=== PATIENT | male | born 1950 | race Caucasian/White ===

== ENCOUNTER → 2019-07-29 | Outpatient (CLI) | payer MEDICARE ==
--- NOTE | 2019-07-29 19:00 | ECHOF ---
Referral Reason:R01.1 Cardiac Murmur MEASUREMENTS -------- HEIGHT: 180.3 cm WEIGHT: 99.8 kg BP: 165/70 IVSd: 1.6 cm (0.6 - 1.1) LVIDd: 4.8 cm (3.9 - 5.3) LVPWd: 1.6 cm (0.6 - 1.1) IVSs: 2.2 cm LVIDs: 3.1 cm LVPWs: 2.3 cm LA Diam: 4.0 cm (2.7 - 3.8) RVIDd: 2.8 cm (< 3.3) LAESV Index (A-L): 25.34 ml/m Ao Diam: 3.3 cm (2.0 - 3.7) AV Cusp: 1.5 cm (1.5 - 2.6) EPSS: 0.6 cm MV E Fran: 0.65 m/s MV DecT: 300 ms MV A Fran: 0.88 m/s MV E/A Ratio: 0.73 RAP: 5.00 mmHg RVSP: 33.58 mmHg MV EF SLOPE: 86.59 mm/s (70 - 150) MV EXCURSION: 18.81 mm (> 18.000) TAPSE: 21.87 mm FINDINGS -------- Sinus rhythm. This was a technically adequate study. The left ventricular size is normal. There is moderate concentric left ventricular hypertrophy. O verall left ventricular systolic function is normal with, an EF between 60 - 65 %. The diastolic fi lling pattern indicates impaired relaxation 14.05. The right ventricle is normal in size. Normal LA size by volume 22+/-6 ml/m2. The right atrium is normal in size. Interatrial and interventricular septum intact. There is mild aortic valve sclerosis. There is trace to mild mitral regurgitation. Mild tricuspid regurgitation present. Right ventricular systolic pressure is normal at < 35 mmHg. Trace/mild (physiologic) pulmonic regurgitation. The aortic root size is normal. IVC Not well visulized. There is no pericardial effusion. CONCLUSIONS -------- 1. Sinus rhythm. 2. This was a technically adequate study. 3. The left ventricular size is normal. 4. There is moderate concentric left ventricular hypertrophy. 5. Overall left ventricular systolic function is normal with, an EF between 60 - 65 %. 6. The diastolic filling pattern indicates impaired relaxation 14.05.. 7. The right ventricle is normal in size. 8. Normal LA size by volume 22+/-6 ml/m2. 9. The right atrium is normal in size. 10. Interatrial and interventricular septum intact. 11. There is mild aortic valve sclerosis. 12. There is trace to mild mitral regurgitation. 13. Mild tricuspid regurgitation present. 14. Right ventricular systolic pressure is normal at < 35 mmHg. 15. Trace/mild (physiologic) pulmonic regurgitation. 16. The aortic root size is normal. 17. IVC Not well visulized. 18. There is no pericardial effusion. PRESENTATION MANAGER: Isabel Bucio RDCS
== END | disposition home or self-care (01) ==
LOC: RADECHMAIN 16:15
PROVIDERS: ATTEND Family Medicine
DX: I08.8 Other rheumatic multiple valve diseases (principal)
CPT/HCPCS: 93306

== ENCOUNTER → 2019-10-22 | Outpatient (CLI) | payer MEDICARE ==
--- NOTE | 2019-10-24 11:01 | CTL ---
EXAMINATION TYPE: CT Low Dose Lung DATE OF EXAM ORDERED: 10/22/2019 HISTORY: Personal history of tobacco abuse. Lung cancer screening CT DLP: [address] CTDI: 2.14 mGy Automated exposure control for dose reduction was used. SCREENING VISIT: Initial COMPARISON: None TECHNIQUE: Low dose computed tomography scan was performed through the chest at 1 mm thick sections a nd reconstructed images in the coronal plane at [address] DIAGNOSTIC QUALITY: Limited, but interpretable FINDINGS: LUNG NODULES: None. LUNGS: COPD: Severity: Mild Fibrosis: Severity: None Lymph nodes: Nonenlarged Other findings: Mild bibasilar peribronchial cuffing. RIGHT PLEURAL SPACE: Effusion: None Calcification: None Thickening: None Pneumothorax: None LEFT PLEURAL SPACE: Effusion: None Calcification: None Thickening: None Pneumothorax: None HEART: Heart Size: Normal Coronary calcification: Moderate to severe Pericardial effusion: None OTHER FINDINGS: Upper abdomen: Small hiatal hernia. Limited due to patient body habitus and technique. Bony thorax: Mild degenerative changes of the thoracic spine. Schmorl's node and a very mild superior endplate deformity of T7. Supraclavicular region: Unremarkable IMPRESSION: 1. Lung RADS 1-negative. 2. Very mild compression deformity of the T7 vertebral body. This is age indeterminate as no priors a re available for comparison. Correlate with point tenderness. 3. Moderate to severe three-vessel coronary artery calcifications, marker of coronary artery disease. 4. Small hiatal hernia. 5. Mild COPD with mild bibasilar peribronchial cuffing, likely reactive. FOLLOW UP CT CHEST RECOMMENDATION: Annual screening with low dose chest CT is recommended. CT LUNG RAD: 1
== END | disposition home or self-care (01) ==
LOC: RADCTMAIN 16:32
PROVIDERS: ATTEND Family Medicine
DX: Z12.2 Encounter for screening for malignant neoplasm of respiratory organs (principal); J44.9 Chronic obstructive pulmonary disease, unspecified; I25.10 Atherosclerotic heart disease of native coronary artery without angina pectoris; Z87.891 Personal history of nicotine dependence

== ENCOUNTER → 2021-03-26 | Outpatient (CLI) | payer MEDICARE ==
--- NOTE | 2021-03-26 07:36 | US ---
EXAMINATION TYPE: US duplex aorta DATE OF EXAM: 03/26/2021 COMPARISON: NONE CLINICAL HISTORY: Z13.820 Screening osteoporosis,Z87.891 Personal. Previous smoker. HTN controlled w ith meds EXAM MEASUREMENTS: Abdominal Aorta: Proximal: 2.1 x 2.0 cm Mid: 1.6 x 1.8 cm Distal: 1.5 x 1.6 cm Bifurcation: Right- 1.3 x 1.0 cm Left- 1.5 x 0.8 cm Suboptimal visualized due to overlying bowel gas and midline abdomen scar No AAA visualized at time of scan. IMPRESSION: No sonographic evidence for abdominal aortic aneurysm at this time.
--- NOTE | 2021-03-26 16:03 | BD ---
EXAMINATION TYPE: Axial Bone Density DATE OF EXAM: 03/26/2021 COMPARISON: NONE CLINICAL HISTORY: Height: 5 FT 10 IN Weight: 212 FRAX RISK QUESTIONS: Alcohol (3 or more units per day): NO Family History (Parent hip fracture): NO Glucocorticoids (More than 3mos): NO (Ex: prednisone, prednisolone, methylprednisolone, dexamethasone, and hydrocortisone). History of Fracture in Adulthood: YES Secondary Osteoporosis: 1. Type 1 Diabetes: NO 2. Hyperthyroidism: NO 3. Menopause before 45: NA 4. Malnutrition: NO 5. Chronic liver disease: NO Rheumatoid Arthritis: NO Current Tobacco Use: FORMER RISK FACTORS HISTORY OF: Surgery to Spine/Hip(right/left)/Wrist (right/left): LEFT WRIST When: 2003 Family History of Osteoporosis: NO Active: YES Diet low in dairy products/other sources of calcium: NO Postmenopausal woman: NA Take estrogen and/or progesterone medications: NA Lost more than 2 inches in height since high school: YES MEDICATIONS: Additional Medications: BLOOD PRESSURE MEDS, TENORMIN, ZOCOR, JARDIANCE, NORCO Additional History: EXAM MEASUREMENTS: Bone mineral densitometry was performed using the [employer] System. Bone mineral density as measured about the Lumbar spine is: ----- L1-L4(G/cm2): 1.132 T Score Values are as follows: ----- L2: -1.1 ----- L3: 0.2 ----- L4: -0.1 ----- L1-L4: -0.4 BASELINE Bone mineral density about the R hip (g/cm2): 0.823 Bone mineral density about the L hip (g/cm2): 0.834 T Score values are as follows: -----R Neck: -1.5 -----L Neck: -1.5 -----R Total: -1.1 -----L Total: -0.6 BASELINE IMPRESSION: Osteopenia. NOTE: T-SCORE=SD OF THE YOUNG ADULT MEAN.
== END | disposition home or self-care (01) ==
LOC: RADUSWWP 07:01
PROVIDERS: ATTEND Family Medicine
DX: M85.89 Other specified disorders of bone density and structure, multiple sites (principal); I10 Essential (primary) hypertension; Z87.891 Personal history of nicotine dependence
CPT/HCPCS: 77080; 93979

== ENCOUNTER → 2021-05-17 | Outpatient (CLI) | payer MEDICARE, OTHER ==
--- NOTE | 2021-05-17 12:47 | CONS ---
CONSULTATION DATE OF SERVICE: 05/17/2021 This 70-year-old gentleman has been evaluated in [facility] for possible obstructive sleep apnea-hypopnea syndrome. HISTORY OF PRESENT ILLNESS/SLEEP-WAKE EVALUATION: The patient's usual sleep schedule varies. It is from around 7 to 10 p.m. until 5:30 or 6 a.m. Usually no significant problems with falling asleep, although he has a TV set in the bedroom. He sleeps in different positions, including back and side. He does have loud snoring and witnessed episodes of stopped breathing during sleep. The patient wakes up from sleep up to 4 times with episodes of gasping for air and nocturia. Positive history of sleeptalking. In the morning the patient wakes up tired, falling asleep during the day, has problems with memory and concentration. [place] Sleepiness Scale is 9. He may take two naps during the day and usually feels refreshed after naps. Sometimes he sees vivid dreams during naps. No history of hypnagogic hallucinations, sleep paralysis or cataplexy. PAST MEDICAL HISTORY: Positive for hypertension, hyperlipidemia, knee arthritis, borderline level of blood sugar. PAST SURGICAL HISTORY: Right knee surgery, left ankle surgery. MEDICATIONS: 1. Tenormin 50 mg once a day. 2. Zestoretic 0.25 mg once a day. 3. Zocor 40 mg once a day. 4. Jardiance. 5. [place] 7.5/325 mg as needed. SOCIAL HISTORY: Positive for smoking 2-3 packs a day for up to 40 years; quit 10 years ago. Alcohol consumption: None at the present time. FAMILY HISTORY: Positive for cancer and hypertension. REVIEW OF SYSTEMS: No fevers. No double vision. No recent chest pain. No shortness of breath. No abdominal pain. No bleeding episodes. No blood in the urine. No seizure episodes. Multiple awakenings from sleep, sleepiness during the day without much energy. PHYSICAL EXAMINATION: GENERAL: A pleasant gentleman without distress. VITAL SIGNS: BP 128/74, HR 56, RR 15, height 5 feet 10 inches, weight 214.0, body mass index 30.7, temperature 97.4, oxygen saturation at room air 95%. HEENT: PERRLA, EOMI, evaluation of oropharynx showed tongue protrudes midline. Slightly low position of soft palate; Mallampati II to III. Wide pillars. Wide big uvula. NECK: Supple, no JVD. Thyroid is not palpable. Neck measures 17-1/2 inches in circumference. LUNGS: Clear to percussion and to auscultation. Good air exchange. No wheezing or rhonchi. HEART: S1, S2 regular. No murmurs, gallops, or rubs. ABDOMEN: Soft and nontender. Bowel sounds are present. No organomegaly appreciated. EXTREMITIES: No clubbing or cyanosis. COMMUNITY SUPPORT ASSOCIATE: Awake, alert, and oriented X3. Cranial nerves 2 to 7 intact. There is no fasciculation or atrophy. noted. No focal deficits observed. IMPRESSION: 1. Loud snoring, witnessed episodes of stopped breathing during sleep, multiple awakenings from sleep with gasping for air, small oropharyngeal air space, wide neck at 17-1/2 inches in circumference. Patient takes naps 2 times a day. [place] Sleepiness Scale 9. Obstructive sleep apnea-hypopnea syndrome. 2. Hypertension. 3. Hyperlipidemia. 4. Knee arthritis. 5. Borderline level of blood sugar. 6. Status post right knee surgery. 7. Patient on small doses of opioids for pain which may increase risk for central sleep apnea. PLAN: 1. Polysomnography for evaluation of patient's breathing during sleep. 2. CPAP/BiPAP titration if sleep study confirms obstructive sleep apnea-hypopnea syndrome. 3. Preferable position during sleep on the side. 4. No driving if patient feels any sleepiness. 5. I will see patient for follow up visit to explain results of testing and following plan. Thank you very much for referring this patient for consultation. Sincerely, Santino Watts MD, PhD, FAASM Diplomat of [place] [employer] Sleep Medicine Board of [place] [employer] [facility] [place] MMODL / IJN: [id number] /
== END ==
LOC: SLEEP 10:54
PROVIDERS: ATTEND Internal Medicine
DX: G47.33 Obstructive sleep apnea (adult) (pediatric) (principal); E78.5 Hyperlipidemia, unspecified; F17.210 Nicotine dependence, cigarettes, uncomplicated; M17.10 Unilateral primary osteoarthritis, unspecified knee; I10 Essential (primary) hypertension; Z79.899 Other long term (current) drug therapy; Z98.890 Other specified postprocedural states; Z79.891 Long term (current) use of opiate analgesic
CPT/HCPCS: 99211

== ENCOUNTER 2024-02-02 06:05 | Day surgery (SDC) | payer MEDICARE, OTHER ==
[~2024-02-02 06:05] MED LIST: ALPRAZolam 0.25 MG TAB PO PRN; ALPRAZolam 0.5 MG TAB PO PRN; ASPIRIN 325 MG TAB PO STA; ATORVASTATIN 80 MG TAB PO STA; HEPARIN SODIUM,PORCINE (1 ML) 2,500 UNIT in SODIUM CHLORIDE 0.9% 250 ML IRRIGATION PRN; HEPARIN SODIUM,PORCINE 10,000 UNIT in SODIUM CHLORIDE 0.9% 1,000 ML IRRIGATION PRN; NITROGLYCERIN SL TABS 0.4 MG TAB SUBLINGUAL PRN; SODIUM CHLORIDE 0.9% 1,000 ML in EMPTY BAG 1 BAG IV SCH
[2024-02-02] MEDS: SODIUM CHLORIDE 0.9% 1,000 ML IV ONE (06:20)
[2024-02-02 06:46] LABS: Glucose,Whole Blood 132 mg/dL (70-110)
[2024-02-02 07:14] VITALS: RESP 16; TEMP 98.7
[2024-02-02] MEDS ORDERED: fentaNYL (PF) 50 MCG/ML 2 ML AMP ONE (07:34)
[2024-02-02] MEDS: fentaNYL (PF) 50 MCG/ML 2 ML AMP IVP ONE (07:35)
[2024-02-02] MEDS: MIDAZOLAM 2 MG/2 ML VIAL IVP ONE (07:35)
[2024-02-02] MEDS ORDERED: VERAPAMIL 2.5 MG/ML 2 ML AMP ONE (07:36)
[2024-02-02] MEDS ORDERED: LIDOCAINE 1% INJ 10MG/ML (20 ML MDV) ONE (07:36)
[2024-02-02] MEDS ORDERED: HEPARIN SODIUM 1,000 UN/ML (10ML VL) ONE (07:36)
[2024-02-02] MEDS: LIDOCAINE 1% INJ 10MG/ML (20 ML MDV) SQ ONE (07:37)
[2024-02-02] MEDS: HEPARIN SODIUM 1,000 UN/ML (10ML VL) IVP ONE (07:42)
[2024-02-02] MEDS: VERAPAMIL SYRINGE (5 MG/10 ML) INTRAARTER ONE (07:42)
[2024-02-02] MEDS ORDERED: CLOPIDOGREL 75 MG TAB ONE (07:57)
[2024-02-02] MEDS: CLOPIDOGREL 75 MG TAB PO ONE (08:04)
[2024-02-02] MEDS: IOPAMIDOL-370 100ML BTL INJ ONE ×2 (08:20→09:00)
[2024-02-02] MEDS: NITROGLYCERIN 1000MCG/10ML SYRINGE INTRACORON ONE (08:20)
[2024-02-02] MEDS ORDERED: MAG HYDROX/AL HYDROX/SIMETH 30 ML CUP PO PRN (08:54)
[2024-02-02] MEDS ORDERED: ACETAMINOPHEN TAB 325 MG TAB PO PRN (08:54)
[2024-02-02] MEDS ORDERED: RX INFO: IV CONTRAST WAS GIVEN 1 EACH MISC MISCELLANE PRN (08:54)
[2024-02-02] MEDS ORDERED: ATROPINE SULFATE 0.1 MG/ML 10ML SYRINGE IV PRN (08:54)
[2024-02-02] MEDS ORDERED: ZOLPIDEM 5 MG TAB PO PRN (08:54)
[2024-02-02] MEDS ORDERED: SODIUM CHLORIDE 0.9% 1,000 ML in EMPTY BAG 1 BAG IV SCH (09:00)
--- NOTE | 2024-02-02 13:58 | P.PRCINT ---
Percutaneous Coronary Int. - Percutaneous Coronary Intervention Percutaneous Coronary Intervention: PROCEDURES PERFORMED: Left heart catheterization, bilateral coronary angiography, ultrasound guided arterial access, PCI proximal LAD with a 3.0 x 28mm Xience JIMENA, post dilated with a 3.5mm, 4.0mm NC balloon, iFR LAD, CSI rotational atherectomy LAD, IVUS LAD INDICATION: Abnormal stress test with fixed inferior defect and reversible anterior apical defect, dyspnea with exertion NYHA class 3 symptoms despite antianginals CONSENT:I have discussed the risks, benefits and alternative therapies for the above-mentioned procedure and for both sedation/analgesia as well as necessary blood product administration, if indicated, as they pertain to this patient. The patient has indicated understanding and acceptance of the risks and procedures discussed. PROCEDURE: After the risks, benefits and alternatives of the above mentioned procedure explained in detail with the patient, informed consent was obtained. Patient was taken to the catheterization lab and prepped and draped in usual fashion. Ultrasound guidance was used to assess for arterial access. 1% lidocaine was used to anesthetize the right radial artery. A 6-Ukrainian sheath was placed in the right radial artery using modified Seldinger technique and ul trasound guidance. Left coronary angiography was performed with a 5-[place]rainian JL 3.5 catheter and right coronary angiography was performed with a 5-[place]rainian AR2 catheter in various views. A 5-Ukrainian FR5 catheter was inserted into the left ventricle and pressure measurements were obtained. The decision was made to perform iFR at the LAD. Heparin was given. A 6-[place]rainian CLS 3.5 guide was used engage the left main. A 0.014 pressure wire was advanced into the proximal left main and normalized. It was then advanced 1 cm distal to the LAD lesion and iFR was performed and was abnormal at 0.84. Therefore the decision was made to perform PCI of LAD. there was heavy calcification therefore decision made to perform atherectomy. A 0.014 Viper wire was advanced in the distal LAD. Rotational atherectomy was performed for 5 runs. Next balloon angioplasty was performed with a 2.75 mm noncompliant balloon. There was dissection noted and on IVUS there was no more proximal involvement and distally this was covered with a 3.0 x 28mm Xience JIMENA. This then was postdilated with a 3.5 mm noncompliant balloon and then a 4.0 mm noncompliant balloon proximally. Final angiograms were performed. Final IVUS showed well expanded stent with no dissection. Preintervention there is 90% stenosis with IGNACIA 3 flow and postintervention there was less than 10% stenosis with IGNACIA 3 flow. The right radial sheath was removed and a TR band was placed with hemostasis achieved. The patient tolerated the procedure well. Patient was transported back to the post catheterization holding area in stable condition. Conscious Sedation: Patient was monitored under the direct supervision of myself for conscious sedation using Versed and fentanyl for a total duration of 70 minutes HEMODYNAMICS: Ao: 128/71 LV: 122/5, LVEDP 14mmHg SELECTIVE CORONARY ARTERIOGRAPHY: LEFT MAIN: The left main is a large caliber vessel which bifurcates into the LAD and circumflex. There is no significant stenosis. LEFT ANTERIOR DESCENDING CORONARY ARTERY: LAD is a large caliber vessel which wraps around to the apex. There is diffuse ostial 20-30% proximal LAD stenosis and a more focal 90% proximal LAD stenosis which is heavily calcified. The mid to distal LAD has mild luminal irregularities. There is a "high diagonal 1" branch which is small caliber and has no significant stenosis. LEFT CIRCUMFLEX CORONARY ARTERY: Left circumflex is a large caliber vessel with mild 10-20% stenosis. The circumflex gives off the PDA and is the dominant vessel. RIGHT CORONARY ARTERY: The right coronary artery is a small caliber vessel which gives off an acute marginal branch and is the non dominant vessel. There is proximal 80% stenosis FINAL IMPRESSION: 1. CAD as described above including 90% proximal LAD, 80% small caliber nondominant RCA and otherwise mild CAD 2. Normal left sided filling pressures 3. Abnormal iFR of LAD 4. S/p PCI proximal LAD with a 3.0 x 28mm Xience JIMENA, post dilated with a 3.5mm, 4.0mm NC balloon PLAN: 1. Aggressive risk factor modification per most recent ACC/AHA guidelines. 2. Continue dual antiplatelets with aspirin and Plavix for 6 months 3. Goal LDL < 70
[2024-02-02 14:22] VITALS: BP 135/72; PULSE 68
[2024-02-03] MEDS ORDERED: ASPIRIN 81 MG PO SCH (09:00)
[2024-02-03] MEDS ORDERED: CLOPIDOGREL 75 MG TAB PO SCH (09:00)
== END 2024-02-02 13:55 | disposition home or self-care (01) ==
LOC: CATHCVL 06:05
PROVIDERS: ATTEND Internal Medicine
DX: I25.10 Atherosclerotic heart disease of native coronary artery without angina pectoris (principal); Z95.5 Presence of coronary angioplasty implant and graft; Z79.02 Long term (current) use of antithrombotics/antiplatelets
CPT/HCPCS: 92978; 93458; 93799; 76937; C9602; C1887; C1769 ×3; C1894; C1753; C1724; C1874; C1725 ×3; J2250; J2001; J3010; J1644; Q9967; J2305